=== PATIENT | female | born 1970 | race Caucasian/White ===

== ENCOUNTER 2016-12-02 19:03 | Emergency (ER) | payer OTHER ==
[~2016-12-02] VITALS: Ht 170.1 cm; Wt 56.7 kg
[~2016-12-02 19:03] MED LIST: ALBUTEROL0.09 MG/A2 INH; ANTIBIOTIC O500 U/GM T; ATARAX25 MG PO; ATIVAN0.5 MG PO; ATORVASTATIN CA10 M1 PO; BENADRYL ALLERG25 M5 PO; CLARITIN10 MG PO; CORTISPORIN 1%-10 M1 OT; EFFEXOR75 MG PO; HYDR12.5C PO; IBU-200200 MG PO; KEFLEX500 MG PO; MEDROL DOSEPAK4 MG PO; MOMETASONE FUROA0.11 T; MOTRIN800 MG PO; Meclizine25 MG PO; Motrin,Rufen800 MG PO; NEURONTIN100 MG PO; OMEPRAZOLE40 MG PO; OXYBUTYNIN5 MG PO; Orphenadrine C100 MG PO; PEPCID20 MG PO; PREDNICOT20 MG PO; PROAIR HFA8.5 GM IH; RISPERIDONE1 M1 PO; RISPERIDONE1 MG PO; TRAMADOL HCL50 MG PO; TYLENOL W/CODEI1 TA4 PO; VICODIN 500 MG-1 TAB PO; VITAMIN D31000 IU PO; ZITHROMAX Z PA250 MG PO; [UNRECOGNIZED DRUG - OTHER] NAS
[2016-12-02 19:28] VITALS: BP 105/66
[2016-12-02 19:44] LABS: BILIRUBIN NEGATIVE (NEGATIVE); BLOOD TRACE-INTACT (NEGATIVE); CLARITY SL CLOUDY (CLEAR); COLOR YELLOW (YELLOW); GLUCOSE NEGATIVE (NEGATIVE); KETONE 1+ (NEGATIVE); LEUKO ESTERASE NEGATIVE (NEGATIVE); NITRITE POSITIVE (NEGATIVE); PROTEIN NEGATIVE (NEGATIVE); SPECIFIC GRAVITY 1.025 (1.005-1.030)
[2016-12-02 19:56] LABS: BACTERIA 1+; EPITHELIAL CELLS 45-50; MUCOUS 1+; URINE REFLEX COMMENT YES (NO)
[2016-12-02] MEDS ORDERED: MACROBID100 M1 PO (20:04)
== END 2016-12-02 21:30 | disposition home or self-care (01) ==
LOC: ED 19:03
PROVIDERS: Emergency Medicine Emergency Medical Services
DX: N39.0 Urinary tract infection, site not specified (principal); B96.89 Other specified bacterial agents as the cause of diseases classified elsewhere; Z79.899 Other long term (current) drug therapy; Z88.6 Allergy status to analgesic agent; Z88.2 Allergy status to sulfonamides; Z88.8 Allergy status to other drugs, medicaments and biological substances

== ENCOUNTER → 2017-01-29 | Outpatient (CLI) | payer OTHER ==
[~2017-01-29] MED LIST changes: +DULERA 200 MCG8.8 GM INH; +MACROBID100 M1 PO; +MELOXICAM7.5 MG PO; +NITROFURANTOIN100 M3 PO; +NTS1 EACH TD; +TOPROL XL25 MG PO
--- NOTE | ~2017-01-29 | ST ---
[place], [place] EXERCISE STRESS TEST REPORT NAME: JUAN MIGUEL BRODERICK UNIT #: [id number] ROOM: DOCTOR: MISSAEL NELSON [facility],[place] BIRTHDATE: [birth year] DOS: 01/29/2017 LEXISCAN WITH CARDIOLITE The patient received Lexiscan 0.4 mg over 10 seconds. Isotope was injected. Heart rate obtained was around 120. No significant EKG changes noted. There is evidence of ST depression and Q-wave inversion in V2 to V6 and they are new compared to the baseline. Underlying myocardial ischemia may be considered. Myocardial perfusion scan to follow. SUMMARY: Abnormal Lexiscan and myocardial perfusion scan, EKG with changes in the pericardial is indicating myocardial ischemia. Myocardial perfusion scan to follow. HANANE CANAS MD CM:STRESS:EXERCISE STRESS TEST REPORT [id number] [facility]
--- NOTE | 2017-01-29 13:54 | NUR ---
INFORMED CONSENT SIGNED FOR LEXISCAN STRESS TEST WITH DR. CANAS. RESTING EKG NSR, HR 60, BP 104/60. PULSE OX 100% BREATH SOUND DEMINISHED. COMPLETED ONE MINUTE OF LEXISCAN PROTOCOL RECEIVINAG LEXISCAN 0.4MG OVER 10 SECONDS. NO ARRHYTHMIAS NOTED. ST DEPRESSION NOTED IN V3-V6. PT C/O SOB AND DIZZINESS. LAST RECOVERY HR 105, BP 112/80. WAITING NUCLEAR SCANNING IN STABLE CONDITION.
== END | disposition home or self-care (01) ==
LOC: CARD 00:47
DX: R07.9 Chest pain, unspecified (principal); R53.81 Other malaise

== ENCOUNTER 2018-05-20 10:57 | Emergency (ER) | payer OTHER ==
[~2018-05-20] VITALS: Ht 147.3 cm; Wt 68.0 kg
[2018-05-20 11:09] VITALS: BP 136/70
== END 2018-05-20 13:01 | disposition home or self-care (01) ==
LOC: ED 10:57
DX: S92.352A Displaced fracture of fifth metatarsal bone, left foot, initial encounter for closed fracture (principal); S93.402A Sprain of unspecified ligament of left ankle, initial encounter; S80.02XA Contusion of left knee, initial encounter; Z88.2 Allergy status to sulfonamides; Z88.6 Allergy status to analgesic agent; Z88.8 Allergy status to other drugs, medicaments and biological substances; Z79.899 Other long term (current) drug therapy; W18.39XA Other fall on same level, initial encounter; Y93.01 Activity, walking, marching and hiking; Y92.89 Other specified places as the place of occurrence of the external cause; Y99.8 Other external cause status

== ENCOUNTER 2018-09-28 13:13 | Emergency (ER) | payer OTHER ==
[2018-09-28 13:50] VITALS: BP 146/78
== END 2018-09-28 14:48 | disposition home or self-care (01) ==
LOC: ED 13:13
DX: Z00.8 Encounter for other general examination (principal); Z59.0 Homelessness; Z98.890 Other specified postprocedural states; Z79.899 Other long term (current) drug therapy; Z88.2 Allergy status to sulfonamides; Z88.6 Allergy status to analgesic agent; Z88.8 Allergy status to other drugs, medicaments and biological substances

== ENCOUNTER 2019-04-05 09:26 | Emergency (ER) | payer OTHER ==
[2019-04-05 09:32] VITALS: BP 101/77
[2019-04-05] MEDS ORDERED: CORTISPORIN SUS10 ML OT (10:15)
[2019-04-05] MEDS ORDERED: CEFUROXIME250 MG PO (10:15)
== END 2019-04-05 10:25 | disposition home or self-care (01) ==
LOC: ED 09:26
DX: H60.91 Unspecified otitis externa, right ear (principal); J45.909 Unspecified asthma, uncomplicated; F17.200 Nicotine dependence, unspecified, uncomplicated; Z88.2 Allergy status to sulfonamides; Z88.6 Allergy status to analgesic agent; Z88.8 Allergy status to other drugs, medicaments and biological substances; Z91.041 Radiographic dye allergy status; Z91.048 Other nonmedicinal substance allergy status; Z79.2 Long term (current) use of antibiotics; Z79.899 Other long term (current) drug therapy

== ENCOUNTER 2021-01-03 11:03 | Emergency (ER) | payer OTHER ==
[~2021-01-03] VITALS: Wt 77.6 kg
[~2021-01-03 11:03] MED LIST changes: +CEFUROXIME250 MG PO; +CORTISPORIN SUS10 ML OT
[2021-01-03 12:02] LABS: BASO # 0.1 10*3/uL (0.0-0.1); BASO % 0.7 % (0.0-1.0); EOS # 0.6 10*3/uL (0.0-0.4); EOS % 5.3 % (1.0-4.0); HEMATOCRIT 36.6 % (37.0-47.0); LYMPH # 2.1 10*3/uL (1.3-4.4); LYMPH % 19.1 % (27.0-41.0); MEAN CELL VOLUME 91.7 fl (81.0-99.0); MEAN CORPUSCULAR HGB 32.1 pg (27.0-31.0); MEAN PLATELET VOLUME 10.4 fl (9.6-12.3); MONO # 0.7 10*3/uL (0.1-1.0); MONO % 6.2 % (3.0-9.0); NEUT # 7.4 10*3/uL (2.3-7.9); NEUT % 68.3 % (47.0-73.0); PLATELET COUNT AUTOMATED 296 10*3/uL (130-400); RED BLOOD COUNT 3.99 10*6/uL (4.10-5.10); RED CELL DISTRI WIDTH 12.8 % (0-14.5); WHITE BLOOD COUNT 10.8 10*3/uL (4.8-10.8)
[2021-01-03 12:17] LABS: ALBUMIN 3.8 gm/dl (3.1-4.5); ALKALINE PHOSPHATASE 100 U/L (45-117); BUN 22 mg/dl (7-24); CHLORIDE 103 mmol/L (98-107); CREATININE 1.04 mg/dL (0.55-1.02); POTASSIUM 3.9 mmol/L (3.5-5.1); SGOT/AST 11 IU/L (3-35); SGPT/ALT 20 U/L (12-78); SODIUM 137 mmol/L (136-145); TOTAL PROTEIN 8.3 gm/dL (6.4-8.2)
[2021-01-03 12:19] LABS: TROPONIN I < 0.015 ng/ml (<0.045)
[2021-01-03 12:27] LABS: BILIRUBIN Negative (Negative); BLOOD Negative (Negative); CLARITY Clear (Clear); COLOR Yellow (Yellow); GLUCOSE Negative (Negative); KETONE Negative (Negative); LEUKO ESTERASE Negative (Negative); NITRITE Negative (Negative); PH 5.5 (4.5-8.0)
[2021-01-03 12:46] LABS: BACTERIA TRACE; EPITHELIAL CELLS 0-2; RBC 0-2 rbc/hpf (0-2); WBC 0-2 wbc/hpf (0-5)
[2021-01-03 13:43] VITALS: BP 100/62
== END 2021-01-03 14:13 | disposition home or self-care (01) ==
LOC: ED 11:03
PROVIDERS: Physician Assistant
DX: R55 Syncope and collapse (principal); Z98.890 Other specified postprocedural states; Z79.899 Other long term (current) drug therapy; Z88.2 Allergy status to sulfonamides; Z88.6 Allergy status to analgesic agent

== ENCOUNTER → 2022-12-30 | Outpatient (CLI) | payer OTHER ==
[~2022-12-30] MED LIST changes: +ABILIFY10 MG PO; +ALL DAY ALLERGY10 M2 PO; +COREG6.25 MG PO; +LIPITOR40 MG PO; +MINIPRESS1 MG PO; +SINGULAIR10 M1 PO; +ZESTORETIC 10-1 EACH PO
== END | disposition home or self-care (01) ==
LOC: CARD 12-16 07:30
PROVIDERS: ATTEND Internal Medicine Cardiovascular Disease
DX: I45.10 Unspecified right bundle-branch block (principal)

== ENCOUNTER → 2023-05-04 | Outpatient (CLI) | payer OTHER | END | disposition home or self-care (01) | LOC: US 05-01 14:30 | PROVIDERS: ATTEND Internal Medicine Nephrology | DX: N18.31 Chronic kidney disease, stage 3a (principal) ==

== ENCOUNTER 2023-08-10 11:44 | Emergency (ER) | payer OTHER ==
[~2023-08-10] VITALS: Ht 147.3 cm; Wt 76.7 kg
[2023-08-10 12:17] VITALS: BP 133/95
[2023-08-10 13:00] LABS: BASO % 0.5 % (0.0-1.0); EOS # 0.3 10*3/uL (0.0-0.4); EOS % 3.6 % (1.0-4.0); HEMATOCRIT 34.9 % (37.0-47.0); LYMPH # 2.4 10*3/uL (1.3-4.4); LYMPH % 32.2 % (27.0-41.0); MEAN CELL VOLUME 96.4 fl (81.0-99.0); MEAN CORPUSCULAR HGB 30.7 pg (27.0-31.0); MEAN CORPUSCULAR HGB CONC 31.8 g/dl (33.0-37.0); MEAN PLATELET VOLUME 11.7 fl (9.6-12.3); MONO # 0.7 10*3/uL (0.1-1.0); MONO % 9.6 % (3.0-9.0); NEUT # 3.9 10*3/uL (2.3-7.9); NEUT % 53.7 % (47.0-73.0); PLATELET COUNT AUTOMATED 196 10*3/uL (130-400); RED BLOOD COUNT 3.62 10*6/uL (4.10-5.10); RED CELL DISTRI WIDTH 12.8 % (0-14.5); WHITE BLOOD COUNT 7.3 10*3/uL (4.8-10.8)
[2023-08-10 13:26] LABS: POTASSIUM 4.6 mmol/L (3.4-5.1); TOTAL PROTEIN 7.9 gm/dL (6.0-8.0)
[2023-08-10] MEDS ORDERED: SODIUM CHLORIDE 0.9% 1,000 ML IV ONE (13:35)
== END 2023-08-10 15:54 | disposition home or self-care (01) ==
LOC: ED 11:44
PROVIDERS: Internal Medicine
DX: Z00.01 Encounter for general adult medical examination with abnormal findings (principal); F32.A Depression, unspecified; F41.9 Anxiety disorder, unspecified; Z88.2 Allergy status to sulfonamides; Z88.6 Allergy status to analgesic agent; Z88.8 Allergy status to other drugs, medicaments and biological substances; Z98.890 Other specified postprocedural states

== ENCOUNTER → 2023-08-13 | Outpatient (CLI) | payer OTHER ==
[2023-08-13 08:43] LABS: POTASSIUM 4.5 mmol/L (3.4-5.1)
== END | disposition home or self-care (01) ==
LOC: LAB 08:05
PROVIDERS: ATTEND Internal Medicine Nephrology
DX: N17.9 Acute kidney failure, unspecified (principal)

== ENCOUNTER → 2023-11-18 | Outpatient (CLI) | payer OTHER ==
[2023-11-18 08:03] LABS: BASO # 0.1 10*3/uL (0.0-0.1); BASO % 0.7 % (0.0-1.0); EOS # 0.2 10*3/uL (0.0-0.4); EOS % 2.1 % (1.0-4.0); HEMATOCRIT 35.9 % (37.0-47.0); LYMPH # 2.5 10*3/uL (1.3-4.4); LYMPH % 33.1 % (27.0-41.0); MEAN CELL VOLUME 94.5 fl (81.0-99.0); MEAN CORPUSCULAR HGB 31.8 pg (27.0-31.0); MEAN CORPUSCULAR HGB CONC 33.7 g/dl (33.0-37.0); MEAN PLATELET VOLUME 11.2 fl (9.6-12.3); MONO # 0.7 10*3/uL (0.1-1.0); MONO % 9.3 % (3.0-9.0); NEUT # 4.1 10*3/uL (2.3-7.9); NEUT % 54.4 % (47.0-73.0); PLATELET COUNT AUTOMATED 203 10*3/uL (130-400); RED CELL DISTRI WIDTH 12.9 % (0-14.5); WHITE BLOOD COUNT 7.5 10*3/uL (4.8-10.8)
[2023-11-18 09:09] LABS: POTASSIUM 4.6 mmol/L (3.4-5.1); TOTAL PROTEIN 7.9 gm/dL (6.0-8.0)
[2023-11-18 10:43] LABS: VITAMIN D, 25-HYDROXY 38.7 ng/mL (30-100)
== END | disposition home or self-care (01) ==
LOC: LAB 07:51
PROVIDERS: ATTEND Nurse Practitioner
DX: F31.81 Bipolar II disorder (principal)

== ENCOUNTER → 2023-11-30 | Outpatient (CLI) | payer OTHER ==
[2023-11-30 10:09] LABS: BASO % 0.5 % (0.0-1.0); EOS # 0.1 10*3/uL (0.0-0.4); EOS % 1.3 % (1.0-4.0); HEMATOCRIT 35.1 % (37.0-47.0); LYMPH # 2.6 10*3/uL (1.3-4.4); LYMPH % 34.9 % (27.0-41.0); MEAN CELL VOLUME 96.4 fl (81.0-99.0); MEAN CORPUSCULAR HGB 31.3 pg (27.0-31.0); MEAN CORPUSCULAR HGB CONC 32.5 g/dl (33.0-37.0); MEAN PLATELET VOLUME 11.1 fl (9.6-12.3); MONO # 0.8 10*3/uL (0.1-1.0); MONO % 10.5 % (3.0-9.0); NEUT # 3.9 10*3/uL (2.3-7.9); NEUT % 52.5 % (47.0-73.0); PLATELET COUNT AUTOMATED 210 10*3/uL (130-400); RED BLOOD COUNT 3.64 10*6/uL (4.10-5.10); RED CELL DISTRI WIDTH 12.8 % (0-14.5); WHITE BLOOD COUNT 7.4 10*3/uL (4.8-10.8)
[2023-11-30 10:23] LABS: BILIRUBIN Negative (Negative); BLOOD Negative (Negative); CLARITY Cloudy (Clear); COLOR Yellow (Yellow); GLUCOSE Negative (Negative); KETONE Negative (Negative); LEUKO ESTERASE Trace (Negative); NITRITE Negative (Negative)
[2023-11-30 10:35] LABS: URINE CREATININE RANDOM 152.15 mg/dL
[2023-11-30 10:40] LABS: TOTAL PROTEIN 7.5 gm/dL (6.0-8.0)
[2023-11-30 10:49] LABS: EPITHELIAL CELLS TNTC; RBC 0-2 rbc/hpf (0-2)
[2023-11-30 10:50] LABS: BACTERIA 1+
== END | disposition home or self-care (01) ==
LOC: LAB 09:33
PROVIDERS: ATTEND Internal Medicine Nephrology
DX: R35.89 Other polyuria (principal); R73.9 Hyperglycemia, unspecified

== ENCOUNTER → 2024-01-25 | Outpatient (CLI) | payer OTHER ==
[2024-01-25 12:23] LABS: BILIRUBIN Negative (Negative); BLOOD Negative (Negative); CLARITY Cloudy (Clear); COLOR Yellow (Yellow); GLUCOSE Negative (Negative); KETONE Trace (Negative); LEUKO ESTERASE 1+ (Negative); NITRITE Negative (Negative); PH 5.5 (4.5-8.0)
[2024-01-25 13:09] LABS: POTASSIUM 3.2 mmol/L (3.4-5.1)
[2024-01-25 13:29] LABS: BACTERIA 3+; EPITHELIAL CELLS 21-30
== END | disposition home or self-care (01) ==
LOC: LAB 11:28
PROVIDERS: ATTEND Internal Medicine Nephrology
DX: N18.31 Chronic kidney disease, stage 3a (principal)